=== PATIENT | female | born 2000 | race Caucasian/White ===

== ENCOUNTER 2021-04-01 10:16 | Emergency (ER) | payer OTHER, SELFPAY ==
[2021-04-01] VITALS (7 sets, daily range): BP systolic 115–121; BP diastolic 71–78; PULSE 69–81; RESP 14–18; TEMP 36.2; O2SAT 97–100; BMI 19.3
--- NOTE | 2021-04-01 11:05 | EDS_ITS ---
HPI History of Present Illness Chief Complaint: Suicidal Informant: patient Narrative Narrative: 21-year-old female presenting with depression and suicidal ideation. Patient states she has been feeling suicidal with thoughts of cutting her wrist. She has 1 past psychiatric hospitalization 5 to 6 years ago. She is not currently on any medications. She denies alcohol or drug use. Prior similar symptoms: Yes Recent Illness/Hospitalization: No PFSH PFSH Medical History (Updated 04/01/21 @ 12:[address] Tammi Ibarra MD) Anxiety Depression PTSD (post-traumatic stress disorder) Allergy/AdvReac Type Severity Reaction Status Date / Time No Known Allergies Allergy Verified 04/01/21 10:17 Social History Smoking Status: Never smoker ROS ROS ED Constitutional Constitutional ED: Denies fever(s) Eyes Eyes: Denies change in vision ENT ENT ED: Denies rhinorrhea or sore throat Cardiovascular Cardiovascular: Denies chest pain or palpitations Respiratory/Chest Respiratory/Chest: Denies cough or dyspnea Gastrointestinal Gastrointestinal: Denies abdominal pain, diarrhea, nausea or vomiting Genitourinary Genitourinary ED: Denies dysuria Musculoskeletal Musculoskeletal: Denies myalgias Integumentary Denies rash Neurologic Neurologic: Denies headache(s) Psychiatric Psychiatric: Reports depression and suicidal thoughts EXAM Physical Exam Const Vital Signs: 04/01/21 10:17 04/01/21 11:34 04/01/21 12:06 Temperature 97.1 F L Temperature Source Temporal Pulse Rate 77 69 Respiratory Rate 14 14 14 Blood Pressure 119/78 Blood Pressure Mean 91 Pulse Ox 100 Oxygen Delivery Method Room Air 04/01/21 14:00 04/01/21 15:07 04/01/21 16:21 Temperature 97.1 F L Temperature Source Pulse Rate 81 77 Respiratory Rate 18 14 14 Blood Pressure 115/76 121/71 H Blood Pressure Mean 89 87 Pulse Ox 97 100 Oxygen Delivery Method Room Air Positive well nourished and well developed General Appearance ED: well developed HEENT Reports normocephalic and head/scalp atraumatic Eyes PERRL and EOMs intact bilaterally Neck supple General: Negative for tenderness Chest Wall inspection of chest normal Resp normal respiratory effort and clear to auscultation bilaterally Cardio regular rate and regular rhythm GI non-tender and non-distended Palpation: soft; Negative for guarding or rebound tenderness present no CVA tenderness Extremity normal to inspection Neuro oriented x3 Sensorium / Orientation: alert Psych mental status grossly normal Appearance: grossly normal Attitude: calm Speech: normal speech Mood & Affect: depressed Thought Content: suicidality Skin no rashes or lesions noted MDM MDM MDM Narrative Medical decision making narrative: Labs are reviewed. negative. Alcohol and drug screen are negative. Discussed with social work and patient will be evaluated by social work in the ED for placement for psychiatric evaluation and treatment. Lab Data Attestation: I reviewed the patient's lab results. Labs: Laboratory Results - last 24 hr 04/01/21 04/01/21 04/01/21 10:40 10:40 10:40 WBC 5.7 RBC 4.43 Hgb 13.6 Hct 40.3 MCV 91.0 MCH 30.7 MCHC 33.7 RDW Std Deviation 39.7 RDW Coeff of Netta 11.9 Plt Count 217 MPV 11.1 Immature Gran % (Auto) 0.200 Neut % (Auto) 62.9 Lymph % (Auto) 30.2 [place] % (Auto) 4.9 Eos % (Auto) 1.1 Baso % (Auto) 0.7 Absolute Neuts (auto) 3.6 Absolute Lymphs (auto) 1.71 Nucleated RBC % 0 Sodium 139 Potassium 3.6 Chloride 107 Carbon Dioxide 29.0 Anion Gap 3 L BUN 6 L Creatinine 0.70 Estim Creat Clear Calc 89.91 Est GFR (MDRD) Af Amer 136 Est GFR (MDRD) Non-Af 113 BUN/Creatinine Ratio 8.6 L Glucose 86 Calcium 9.3 Serum , Qual Urine Opiates Screen Urine Methadone Screen Ur Barbiturates Screen Ur Phencyclidine Scrn Ur Amphetamines Screen U Methamphetamin-MDMA U Benzodiazepines Scrn Urine Cocaine Screen U Cannabinoids Screen Ur Drug Screen Comment Ethyl Alcohol 4.0 04/01/21 04/01/21 10:40 10:40 WBC RBC Hgb Hct MCV MCH MCHC RDW Std Deviation RDW Coeff of Netta Plt Count MPV Immature Gran % (Auto) Neut % (Auto) Lymph % (Auto) [place] % (Auto) Eos % (Auto) Baso % (Auto) Absolute Neuts (auto) Absolute Lymphs (auto) Nucleated RBC % Sodium Potassium Chloride Carbon Dioxide Anion Gap BUN Creatinine Estim Creat Clear Calc Est GFR (MDRD) Af Amer Est GFR (MDRD) Non-Af BUN/Creatinine Ratio Glucose Calcium Serum , Qual NEGATIVE Urine Opiates Screen NEGATIVE Urine Methadone Screen NEGATIVE Ur Barbiturates Screen NEGATIVE Ur Phencyclidine Scrn NEGATIVE Ur Amphetamines Screen NEGATIVE U Methamphetamin-MDMA NEGATIVE U Benzodiazepines Scrn NEGATIVE Urine Cocaine Screen NEGATIVE U Cannabinoids Screen NEGATIVE Ur Drug Screen Comment Ethyl Alcohol Discharge Plan Triage Chief Complaint: Suicidal ED Provider: Tammi Ibarra Dx/Rx/DC Orders Clinical Impression: Suicidal ideation Primary Care Provider: Care Physician,No Primary Referrals: Care Physician,No Primary [Primary Care Provider] - Disposition Disposition: Psychiatric Hospital or Unit Discharge Location: [facility]
[2021-04-01 11:07] LABS: Absolute Lymphocyte Count 1.71 X10^3/uL (0.83-4.51); Absolute Neutrophil Count 3.6 X10^3/uL (2.0-7.7); Basophil# 0.04 X10^3/uL; Basophil% 0.7 % (0-1); Eosinophil# 0.06 X10^3/uL; Eosinophils% 1.1 % (0-5); Hematocrit 40.3 % (37-47); Hemoglobin 13.6 g/dL (12.0-15.0); Lymphocyte # 1.71 X10^3/ul (0.83-4.51); Lymphocyte % 30.2 % (19-41); Mean Corp Hgb Conc 33.7 g/dL (32-36); Mean Corpuscular Hgb 30.7 pg (27.0-32.0); Mean Platelet Vol. 11.1 fl (6.2-12.0); Monocyte# 0.28 X10^3/uL; Monocyte% 4.9 % (0-10); NRBC Flagged by Analyzer 0 % (0-5); Neutrophil # 3.57 X10^3/uL (2.7-7.7); Neutrophil % 62.9 % (47-70); Platelet Count 217 K/mm3 (150-450); RBC Distribution Width CV 11.9 % (11.6-14.6); RBC Distribution Width SD 39.7 fl (35.1-43.9); Red Blood Count 4.43 M/mm3 (4.2-5.4); White Blood Count 5.7 K/mm3 (4.4-11.0)
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
[2021-04-01 11:25] LABS: Internal QC Validated? YES +Cl - CLEAR BKGD
--- NOTE | 2021-04-01 11:25 | EKG12_ITS ---
Test Reason : SUICIDAL Blood Pressure : / mmHG Vent. Rate : 065 BPM Atrial Rate : 065 BPM P-R Int : 130 ms QRS Dur : 084 ms QT Int : 432 ms P-R-T Axes : 052 049 031 degrees QTc Int : 449 ms Normal sinus rhythm with sinus arrhythmia Normal ECG Confirmed by MARY JANE RIVERA, CALLUM ([id number]), manuscript editor TORRI STEWART ([id number]) on 04/05/2021 7:53:23 AM Referred By: Confirmed By:CALLUM HINTON MD
--- NOTE | 2021-04-01 11:25 | CM.ED ---
SOCIAL WORK Discussed with Dr. Ibarra recommendation for discontinuation of sitter protocol. Staff updated. Debbie Boyle, FIELD COUNSEL, SFDC ARCHITECT
[2021-04-01 11:27] LABS: Pregnancy, Serum, hCG Quali. NEGATIVE Negative
[2021-04-01 11:32] LABS: Anion Gap 3 (5-15); BUN 6 mg/dL (7-18); BUN/Creat Ratio 8.6 RATIO (10-20); Calcium,Total 9.3 mg/dL (8.5-10.1); Chloride 107 mmol/L (98-107); EST Glomerular Filtration Rate 113 mL/min (>60); Est Glom Filt Rate - Afr Amer 136 mL/min (>60); Estimated Creatinine Clearance 89.91 ml/min; Glucose 86 mg/dL (74-106); Potassium 3.6 mmol/L (3.5-5.1); Sodium Level 139 mmol/L (136-145)
[2021-04-01 11:38] LABS: Amphetamine Urine VISTA NEGATIVE (<1000 ng/mL); Barbiturate Urine VISTA NEGATIVE (< 200 ng/mL); Benzodiazepine Urine VISTA NEGATIVE (< 200 ng/mL); Cocaine Urine VISTA NEGATIVE (< 300 ng/mL); Ecstacy Urine VISTA NEGATIVE (< 500 ng/mL); Methadone Urine VISTA NEGATIVE (< 300 ng/mL); PCP Urine VISTA NEGATIVE (< 25 ng/mL); THC Urine VISTA NEGATIVE (< 50 ng/mL); Vista UDS pH Range 6
--- NOTE | 2021-04-01 11:39 | ED.RN ---
per social work sitter not needed. dr renteria aware
--- NOTE | 2021-04-01 11:41 | CM.ED ---
SOCIAL WORK Referral faxed and [facility]. Pending review at this time. Debbie Boyle, LOAN COORDINATOR, HIRED HELP
--- NOTE | 2021-04-01 13:12 | CM.ED ---
SOCIAL WORK Call to [facility] to check on status of referral. Worker states still under review. Referral faxed and called to [facility]. Debbie Boyle, WOMEN'S APPAREL SALESPERSON, ARTIFICIAL BREAST FABRICATOR
--- NOTE | 2021-04-01 13:53 | CM.ED ---
SOCIAL WORK Received call from [facility]. Patient going to be added to waitlist and may be able to accept patient later today/tomorrow. Referral faxed and called to [facility] who reports has beds available. Will review and get back to this worker. Debbie Boyle, MULTISKILL OPERATOR, DUMPER BULK SYSTEM
--- NOTE | 2021-04-01 14:20 | CM.ED ---
SOCIAL WORK Call from [facility] who reports unable to take patient at this time. Inquired why this worker was told beds available upon initial phone call. Worker apologized and reports will call back if bed becomes available. Patient pending at [facility]. Debbie Boyle, NETWORK DIRECTOR, FORKLIFT TRUCK MECHANIC
--- NOTE | 2021-04-01 16:07 | CM.ED ---
SOCIAL WORK Patient accepted to [facility] by Dr. Obrien. Nurse to call report to [phone]- Room 205 Bed A. [place] faxed. Call to [facility]. 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 Staff and patient updated. Debbie Boyle MSW, CERTIFIED HEALTH EDUCATION SPECIALIST
--- NOTE | 2021-04-01 16:20 | ED.RN ---
REPORT GIVEN TO
== END 2021-04-01 19:00 ==
PROVIDERS: Emergency Provider Emergency Medicine
DX: F32.A Depression, unspecified (principal); R45.851 Suicidal ideations; F43.10 Post-traumatic stress disorder, unspecified; F41.9 Anxiety disorder, unspecified
CPT/HCPCS: 36415; 80048; 80307; 82077; 84703; 85025; 87426; 93005; 99285